=== PATIENT | male | born 1990 | race Caucasian/White ===

== ENCOUNTER 2018-03-06 00:15 | Emergency (ER) | payer OTHER ==
[~2018-03-06] VITALS: Ht 162.6 cm; Wt 51.3 kg
[2018-03-06 00:17] VITALS: BP_SYST 146
[2018-03-06 00:30] VITALS: BP_SYST 146
== END 2018-03-06 00:30 ==
LOC: SED 00:15
DX: Z02.83 Encounter for blood-alcohol and blood-drug test (principal)